=== PATIENT | male | born 1965 | race Caucasian/White ===

== ENCOUNTER → 2017-03-24 | Outpatient (CLI) | payer BC ==
--- NOTE | 2017-03-24 10:16 | KCIC ---
Two-view orbits dated 03/24/2017. No comparison available. CLINICAL INDICATION: Preprocedural clearing for MRI. 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 Reported history of metal to both eyes. FINDINGS: 2 views orbits show no evidence of metallic foreign body. Paranasal sinuses are clear. No acute bony abnormality. IMPRESSION: No evidence of radiopaque foreign body. Electronically signed by: Raghavendra Hernandez MD (03/24/2017 10:12 AM) [id number]
--- NOTE | 2017-03-24 10:59 | KCIC ---
MRI right knee without contrast dated 03/24/2017. Indication: Right knee pain anterior medial pain increasing over the last few weeks swelling Comparison: No comparison is available. Technique: Routine multiplanar multisequence imaging performed. No contrast administered Findings: Moderate hypertrophic changes at the medial compartment with milder degenerative changes of the lateral and anterior compartment. There is thinning and surface irregularity of the articular cartilage throughout. Broad zones of full-thickness cartilage loss over the weightbearing surfaces medial femoral condyle and medial tibial plateau. Mild cartilage thinning over the patellar apex and trochlear groove. Moderate size joint effusion. No significant popliteal cyst. No intra-articular loose body. Anterior cruciate and posterior cruciate ligaments are intact. Medial and lateral collateral complexes are intact. There is mild increased signal along the superficial and deep components of the MCL complex proximally. Iliotibial band, popliteus tendon and pes anserine complex unremarkable. Quadriceps and patellar tendon are intact. There is some focal increased signal within the substance of the proximal patellar tendon with mild prepatellar and superficial infrapatellar edema. No abnormality of the medial or lateral retinaculum. Blunted morphology and deficiency in size of the posterior horn and body of medial meniscus with increased signal in the meniscal substance. Lateral meniscus is normal in morphology and signal. IMPRESSION: 1. 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 There is full-thickness cartilage loss at the weightbearing surfaces of the medial femoral condyle and medial tibial plateau. 2. Degenerative tearing of the posterior horn and body of medial meniscus. 3. Moderate size joint effusion. 4. Mild patellar tendinosis. 5. Edema along the superficial and deep margins of the MCL complex proximally, likely reactive. Low-grade strain cannot be excluded. Electronically signed by: Raghavendra Hernandez MD (03/24/2017 10:56 AM) [id number]
== END | disposition home or self-care (01) ==
LOC: KCIC 09:38
PROVIDERS: ATTEND Orthopaedic Surgery
DX: S83.241D Other tear of medial meniscus, current injury, right knee, subsequent encounter (principal); M17.11 Unilateral primary osteoarthritis, right knee; M25.461 Effusion, right knee; R60.0 Localized edema; X58.XXXD Exposure to other specified factors, subsequent encounter
CPT/HCPCS: 70030; 73721

== ENCOUNTER → 2017-07-08 | Outpatient (CLI) | payer BC ==
--- NOTE | 2017-07-08 16:06 | KCIC ---
MR of the right knee Indication: Right knee pain. Prior medial meniscal surgery in March 2017. Is medial. COMPARISON: March 24, 2017. Technique: The standard multiplanar sequences are obtained. Findings: Medial meniscus: Very small and truncated compatible with prior meniscectomy. Lateral meniscus: Intact. Anterior cruciate ligament: Intact Posterior cruciate ligament: Intact Medial collateral ligament: Thickening and ill-definition of the proximal medial collateral ligament. Compared with the prior study this likely represents some scarring at the site of the previously seen sprain. Iliotibial band: Intact. Posterolateral structures: Fibular collateral ligament, biceps tendon and popliteus tendon are intact. Extensor mechanism: Minimal signal at the distal patellar tendon is stable. No significant tendinosis or tear. Fluid: Moderate joint effusion. Articular cartilage -patellofemoral joint: Mild chondromalacia at the patellofemoral joint is stable. -medial compartment: Severe cartilage loss of the medial femoral condyle and medial tibial plateau are again demonstrated. There is increased subchondral marrow edema since prior study. -lateral compartment:Intact Bones: No significant lesion or acute fracture. Soft tissue: Mild soft tissue edema along the anterior knee. Impression: 1. Very small medial meniscus presumably post meniscectomy. 2. Development of mild scarring of the proximal medial collateral ligament. 3. 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 4. Increase in subchondral marrow edema at the medial joint compartment is likely reactive or degenerative. Electronically signed by: Raghavendra Lobato MD (07/08/2017 4:04 PM) [facility] [id number]
== END | disposition home or self-care (01) ==
LOC: KCIC MRI 14:26
PROVIDERS: ATTEND Physical Medicine & Rehabilitation
DX: M17.11 Unilateral primary osteoarthritis, right knee (principal); M76.51 Patellar tendinitis, right knee; M77.8 Other enthesopathies, not elsewhere classified; M23.203 Derangement of unspecified medial meniscus due to old tear or injury, right knee
CPT/HCPCS: 73721